=== PATIENT | male | born 1945 | race Caucasian/White ===

== ENCOUNTER 2016-10-23 06:18 | Day surgery (SDC) | payer MEDICARE, OTHER ==
--- NOTE | ~2016-10-23 | EGD ---
EGD REPORT [facility] [address] [address] NAME: DARLING ZAZUETA : [birth year] STATUS : REG [facility]#: [id number] AGE: 70 ADM/REG DATE : 10/23/16 MR#: [id number] REPORT SERV DATE: 10/23/16 DICTATED BY: OCTAVIA LANDEROS DATE: 10/23/16 REPORT STATUS : Draft [facility]ANS[facility]IBED [facility]: [facility] DATE: 10/23/16 Endoscopy Center Patient Name: Darling Zazueta Date of : 1945 Attending MD: OCTAVIA LANDEROS MD Procedure Date No Time: 10/23/2016 Procedure: Upper GI endoscopy Indications: Iron deficiency anemia Referring MD: Tai Brower Medicines: Monitored Anesthesia Care Complications: No immediate complications. Procedure: Pre-Anesthesia Assessment: - ASA Grade Assessment: III - A patient with severe systemic disease. After obtaining informed consent, the endoscope was passed under direct vision. Throughout the procedure, the patient's blood pressure, pulse, and oxygen saturations were monitored continuously. The GIF [id number] was introduced through the mouth, and advanced to the second part of duodenum. The upper GI endoscopy was accomplished without difficulty. The patient tolerated the procedure well. Findings: The examined esophagus was normal. The entire examined stomach was normal. The cardia and gastric fundus were normal on retroflexion. The duodenal bulb and 2nd part of the duodenum were normal. Biopsies were taken with a cold forceps for histology. Impression: - Normal esophagus. - Normal stomach. - Normal duodenal bulb and 2nd part of the duodenum. Biopsied. Recommendation: - Await pathology results. Procedure Code(s): --- Professional --- 87468, Esophagogastroduodenoscopy, flexible, transoral; with biopsy, single or multiple Diagnosis Code(s): --- Professional --- D50.9, Iron deficiency anemia, unspecified EGD REPORT [facility] [address] [place] [address] NAME: DARLING ZAZUETA : [birth year] STATUS : [place] [facility] [place]#: [id number] AGE: 70 ADM/REG DATE : 10/23/16 MR#: [id number] REPORT SERV DATE: 10/23/16 DICTATED BY: OCTAVIA LANDEROS DATE: 10/23/16 REPORT STATUS : Draft TRANSCRIBED BY: [employer] DATE: 10/23/16 CPT copyright 2013 [employer]. All rights reserved. The codes documented in this report are preliminary and upon screen printer helper review may be revised to meet current compliance requirements. OCTAVIA LANDEROS MD 10/23/2016 8:25 AM This report has been signed electronically. Number of Addenda: 0 Note Initiated On: 10/23/2016 7:54 AM Scope Withdrawal Time 0 hours 0 minutes 0 seconds [address] [facility] [place] [address]
--- NOTE | ~2016-10-23 | EGD ---
EGD REPORT [facility] [address] [place] [address] NAME: DARLING ZAZUETA : [birth year] STATUS : REG [facility]#: [id number] AGE: 70 ADM/REG DATE : 10/23/16 MR#: [id number] REPORT SERV DATE: 10/23/16 DICTATED BY: OCTAVIA LANDEROS DATE: 10/23/16 REPORT STATUS : Draft [facility]ANSCRIBED BY: [facility] DATE: 10/23/16 Endoscopy Center Patient Name: Darling Zazueta Date of : 1945 Attending MD: OCTAVIA LANDEROS MD Procedure Date No Time: 10/23/2016 Procedure: Colonoscopy Indications: Iron deficiency anemia Referring MD: Tai Brower Medicines: Monitored Anesthesia Care Complications: No immediate complications. Procedure: Pre-Anesthesia Assessment: - ASA Grade Assessment: III - A patient with severe systemic disease. After I obtained informed consent, the scope was passed under direct vision. Throughout the procedure, the patient's blood pressure, pulse, and oxygen saturations were monitored continuously. The PCF [id number] was introduced through the anus and advanced to the cecum, identified by appendiceal orifice and ileocecal valve. The colonoscopy was performed with moderate difficulty due to multiple diverticula in the colon, significant looping and a tortuous colon. Successful completion of the procedure was aided by applying abdominal pressure. The patient tolerated the procedure well. The quality of the bowel preparation was fair. Findings: The digital rectal exam was normal. Pertinent negatives include no palpable rectal lesions. Multiple diverticula were found in the sigmoid colon, in the descending colon and in the transverse colon. A few diverticula were found in the ascending colon. A localized area of mildly erythematous mucosa was found in the rectum. Biopsies were taken with a cold forceps for histology. Hemorrhoids were found during retroflexion and were mild. Impression: - Diverticulosis in the sigmoid colon, in the descending colon and in the transverse colon. - Diverticulosis in the ascending colon. - Erythematous mucosa in the rectum. Biopsied. - Hemorrhoids. Recommendation: - Patient has a contact number available for emergencies. The signs and symptoms of potential delayed EGD REPORT [address] [address] NAME: DARLING ZAZUETA : [birth year] [place] [facility] [place] [id number] AGE: 70 ADM/REG DATE : 10/23/16 MR#: [id number] REPORT SERV DATE: 10/23/16 DICTATED BY: OCTAVIA LANDEROS DATE: 10/23/16 REPORT STATUS : Draft TRANSCRIBED BY: [employer] DATE: 10/23/16 complications were discussed with the patient. Return to normal activities tomorrow. Written discharge instructions were provided to the patient. - Regular diet. - Continue present medications. - Perform a small bowel follow through. - Await pathology results. - Return to GI clinic in 1 month. Procedure Code(s): --- Professional --- 86116, Colonoscopy, flexible, proximal to splenic flexure; with biopsy, single or multiple Diagnosis Code(s): --- Professional --- K64.9, Unspecified hemorrhoids K57.30, Diverticulosis of large intestine without perforation or abscess without bleeding K62.9, Disease of anus and rectum, unspecified D50.9, Iron deficiency anemia, unspecified CPT copyright 2013 [employer]. All rights reserved. The codes documented in this report are preliminary and upon grease monkey review may be revised to meet current compliance requirements. OCATVIA LANDEROS MD 10/23/2016 8:28 AM This report has been signed electronically. Number of Addenda: 0 Note Initiated On: 10/23/2016 7:48 AM Scope Withdrawal Time 0 hours 7 minutes 54 seconds [address] [place] [address]
[~2016-10-23 06:18] MED LIST: ASAB PO; B COMPLETE PO; B121000P SC; CARD120 PO; CARDURA1 MG PO; ENDOCET1 TA1 PO; ENDOCET1 TA3 PO; EZFE 200200 MG PO; FARXIGA10 PO; GLUCPH PO; GRALISE600 MG PO; HYOMAX-SL0.125 MG PO; IMDUR30 PO; L20 PO; LEVSINTAB PO; LIPITOR40 PO; LOP25 PO; LOTE20 PO; MAGOX4 PO; NEUR300 PO; NEUR600 PO; NITROSTAT0.4 MG SL; NORV10 PO; PERCOCET1 TA4 PO; PRILOSEC40 MG PO; PROTONIX PO; SPIRO25 PO; SPIRO50 PO; VICODINTAB PO; VICTOZA18 MG/3 ML SC; ZANAFLEX 4 MG TA4 MG PO; ZOCOR20 PO; ZOCOR40 PO; ZOFRAN4 PO; ZOFRAN8 PO
== END 2016-10-23 23:59 | disposition home health service (06) ==
LOC: DMU 06:18
PROVIDERS: Internal Medicine Gastroenterology
PROC: 0DB98ZX Excision of Duodenum, Via Natural or Artificial Opening Endoscopic, Diagnostic (ICD-10-PCS; principal; 2016-10-23 08:00)
PROC: 0DBP8ZX Excision of Rectum, Via Natural or Artificial Opening Endoscopic, Diagnostic (ICD-10-PCS; 2016-10-23 08:00)
DX: K64.9 Unspecified hemorrhoids (principal); K57.30 Diverticulosis of large intestine without perforation or abscess without bleeding; I10 Essential (primary) hypertension; I25.10 Atherosclerotic heart disease of native coronary artery without angina pectoris; E11.9 Type 2 diabetes mellitus without complications; G47.33 Obstructive sleep apnea (adult) (pediatric); E78.00 Pure hypercholesterolemia, unspecified; G62.9 Polyneuropathy, unspecified; E78.5 Hyperlipidemia, unspecified; Z95.1 Presence of aortocoronary bypass graft; Z87.891 Personal history of nicotine dependence
CPT/HCPCS: 82962; 88305; A9270-GY